=== PATIENT | female | born 1955 | race Caucasian/White ===

== ENCOUNTER → 2022-05-16 | Outpatient (CLI) | payer OTHER | LOC: M SOG 10:43 | PROVIDERS: ATTEND Orthopaedic Surgery Hand Surgery | DX: M79.642 Pain in left hand (principal) ==

== ENCOUNTER 2022-11-04 06:13 | Day surgery (SDC) | payer MEDICARE, OTHER ==
[2022-11-04] VITALS (7 sets, daily range): BP systolic 109–136; BP diastolic 59–66
[~2022-11-04] VITALS: Ht 170.2 cm; Wt 60.3 kg
[~2022-11-04 06:13] MED LIST: ESTR10TA PV; THERTAB52 PO; VITAD1000T PO; ceFAZolin SOD 2 GM in IV 1 EA IV ONE
[2022-11-04] MEDS ORDERED: LR 1,000 ML IV SCH ×2 (06:35→09:10)
[2022-11-04] MEDS ORDERED: HYDROmorphone HCL 2MG/ML 1ML VIAL As Ordered ONE (07:04)
[2022-11-04 07:07] LABS: HEMATOCRIT 38.8 % (36.0-47.0); HEMOGLOBIN 12.6 g/dl (12.0-15.5); MEAN CORPUSCULAR HEMOGLOBIN 29.9 pg (27.0-33.0); MEAN CORPUSCULAR HGB CONC 32.5 g/dl (32.0-36.5); MEAN CORPUSCULAR VOLUME 92.2 fl (80.0-96.0); PLATELET COUNT, AUTOMATED 279 10^3/uL (150-450); RED BLOOD COUNT 4.21 10^6/uL (4.00-5.40); WHITE BLOOD COUNT 7.6 10^3/uL (4.0-10.0)
[2022-11-04] MEDS ORDERED: propofoL 200 MG/20 ML VIAL As Ordered ONE ×2 (07:08→07:09)
[2022-11-04] MEDS ORDERED: LIDOCAINE 2% 100MG/5ML SDV (FOR ANES.) As Ordered ONE (07:09)
[2022-11-04] MEDS ORDERED: ROCURONIUM BROMIDE 50MG/5ML VIAL As Ordered ONE (07:10)
[2022-11-04] MEDS ORDERED: ONDANSETRON 4MG 2ML VIAL As Ordered ONE (07:11)
[2022-11-04] MEDS ORDERED: BUPIVACAINE HCL 0.25% 30ML VIAL As Ordered ONE (07:12)
[2022-11-04] MEDS ORDERED: KETOROLAC 60MG 2ML VIAL As Ordered ONE (07:13)
[2022-11-04] MEDS ORDERED: KETAMINE HCL 200MG/20ML VIAL As Ordered ONE (07:18)
[2022-11-04] MEDS ORDERED: GLYCOPYRROLATE INJ 0.2 MG/ML 2 ML VIAL As Ordered ONE (07:59)
[2022-11-04] MEDS ORDERED: oxyCODONE 5MG TAB PO PRN (09:10)
[2022-11-04] MEDS ORDERED: ONDANSETRON 4MG 2ML VIAL IV PRN (09:10)
[2022-11-04] MEDS ORDERED: IBUP-1022 PO (09:29)
[2022-11-04] MEDS ORDERED: OXYC1TAB23 PO (09:29)
[2022-11-04] MEDS ORDERED: MEPERIDINE 25 MG/ML 1ML VIAL As Ordered ONE (09:31)
[2022-11-04] MEDS: MEPERIDINE 25 MG/ML 1ML VIAL IV PRN ×2 (09:32→10:32)
[2022-11-04] MEDS: HYDROMORPHONE HCL 0.5 MG/ 0.5 ML SYRINGE IV PRN ×2 (09:47→09:52)
[2022-11-04] MEDS ORDERED: PERCOCET 5MG/325MG TAB PO PRN (10:25)
[2022-11-04] MEDS: LR 1,000 ML IV SCH ×2 (15:49→22:52)
[2022-11-04] MEDS: KETOROLAC 30 MG/ML 1ML VIAL IV PRN ×2 (17:05→23:24)
[2022-11-04] MEDS: traMADol 50 MG TAB PO PRN (20:28)
[2022-11-05] VITALS: BP 135/62
[2022-11-05] MEDS: LR 1,000 ML IV SCH (02:25)
[2022-11-05 04:00] VITALS: BP 126/60
[2022-11-05] MEDS: traMADol 50 MG TAB PO PRN (04:36)
[2022-11-05] MEDS: KETOROLAC 30 MG/ML 1ML VIAL IV PRN (07:53)
[2022-11-05 08:00] VITALS: BP 125/59
[2022-11-05] MEDS ORDERED: TRAM50TA2 PO (08:33)
== END 2022-11-05 09:40 | disposition home or self-care (01) ==
LOC: M SDC 06:13 → M PED 14:45 → M SDC 11-05 09:40
PROVIDERS: ATTEND Specialist
DX: D25.1 Intramural leiomyoma of uterus (principal); D25.2 Subserosal leiomyoma of uterus; M19.90 Unspecified osteoarthritis, unspecified site; Z79.899 Other long term (current) drug therapy; Z88.5 Allergy status to narcotic agent; Z88.8 Allergy status to other drugs, medicaments and biological substances
CPT/HCPCS: 36415; 58571; 85027; 86850; 86900; 86901; 88307; 93005; 96374; 96376; J0690; J1100; J1170; J1885; J2175; J2405; S2900

== ENCOUNTER → 2025-01-29 | Outpatient (REF) | payer MEDICARE, OTHER ==
[~2025-01-29] MED LIST changes: +IBUP-1022 PO; +OXYC1TAB23 PO; +TRAM50TA2 PO; -ceFAZolin SOD 2 GM in IV 1 EA IV ONE
== END ==
LOC: M LAB REF 11:40
PROVIDERS: ATTEND Internal Medicine
DX: M79.10 Myalgia, unspecified site (principal); Z11.59 Encounter for screening for other viral diseases